=== PATIENT | male | born 1955 | race Caucasian/White ===

== ENCOUNTER 2018-06-14 14:27 | Emergency (ER) | payer BC ==
[~2018-06-14] VITALS: Ht 185.4 cm; Wt 93.0 kg
[2018-06-14] MEDS ORDERED: IV NORMAL SALINE 1000ML BAG 1,000 ML IV ONE ×2 (15:30→18:15)
[2018-06-14] MEDS ORDERED: ONDANSETRON PF 4 MG/2 ML VIAL. IV ONE (15:30)
--- NOTE | 2018-06-14 15:32 | PHYS DOC ---
Past Medical History Past Medical History: No Pertinent History (YURI CORTES APRN) Past Surgical History: Other Additional Past Surgical Histo: GROWTH ON CHEST (YURI CORTES APRN) Alcohol Use: Occasionally Drug Use: None (YURI CORTES APRN) Adult General Chief Complaint Chief Complaint: MULTIPLE COMPLAINTS HPI HPI 63-year-old male presents to ER with complaints of generalized fatigue, nausea and diarrhea, fever, and dizziness. Patient states symptoms started on Sunday night and have gradually worsened over the past couple of days. She reports she had temperature 101.4 today denies taking any [id number] Tylenol or ibuprofen. He reports he did take aspirin 81 mg. Patient states around noon he started having mid chest pressure while resting. Patient is denying any chest pain or palpitations at this time. Patient is uncertain how long the chest pressure lasted but states he did feel short of air when episode occurred. Patient denies any diaphoresis or vomiting. Patient denies pain radiating to extremities, neck, or back. Patient reports he has had dysuria the past couple of times he urinated denies any hematuria. He denies any blood in his stools. He reports his appetite has been down and he has had minimal fluid intake. Patient states he has had intermittent headache and dizziness with position changes. Patient during this initial exam is denying any headache or dizziness. Patient states he did take 2 Imodium yesterday but states he has had multiple episodes of diarrhea today without any Imodium intake today. (YURI CORTES APRN) Review of Systems Review of Systems Constitutional: Reports fever with generalized fatigue Eyes: Denies change in visual acuity, redness, or eye pain [] HENT: Denies nasal congestion or sore throat [] Respiratory: Reports nonprod. cough. Reports felt SOA with chest pressure earlier Cardiovascular: Reports chest pressure at noon- denies any CP currently GI: Denies abdominal pain, vomiting, or bloody stools. Reports nausea and mult. episodes of diarrhea : Denies hematuria. Reports dysuria Musculoskeletal: Denies back pain or joint pain [] Integument: Denies rash or skin lesions [] Neurologic: Denies headache, focal weakness or sensory changes [] Endocrine: Denies polyuria or polydipsia [] All other systems were reviewed and found to be within normal limits, except as documented in this note. (REFFITT,YURI Edwards ERROL) Current Medications Current Medications Current Medications Medications (Trade) Dose Ordered Sig/Michael Start Time Stop Time Status Last Admin Dose Admin Acetaminophen (Tylenol) 650 mg 1X ONCE 06/14/18 17:15 06/14/18 17:16 DC 06/14/18 17:14 650 MG Info (CONTRAST GIVEN -- Rx MONITORING) 1 each PRN DAILY PRN 06/14/18 17:30 06/14/18 20:27 DC Iohexol (Omnipaque 300 Mg/ml) 100 ml 1X ONCE 06/14/18 17:30 06/14/18 17:31 DC 06/14/18 17:31 100 ML Ondansetron HCl (Zofran) 4 mg 1X ONCE 06/14/18 15:30 06/14/18 15:31 DC 06/14/18 15:53 4 MG Sodium Chloride 1,000 ml @ 1,000 mls/hr 1X ONCE 06/14/18 18:15 06/14/18 19:14 DC 06/14/18 18:13 1,000 MLS/HR (EFRAÍN MELENDEZ MD) Allergies Allergies Allergies Coded Allergies Type Severity Reaction Last Updated Verified No Known Drug Allergies 07/31/14 No (EFRAÍN MELENDEZ MD) Physical Exam Physical Exam Constitutional: Well developed, well nourished, no acute distress, non-toxic appearance. Fatigued appearance HENT: Normocephalic, atraumatic, mild erythema bilat TM without bulging/ perforation or purulent drainage, mucous membranes pink/dry no pharyngeal swelling/erythema, no oral exudates, nose normal. [] Eyes: 3mm PERRLA, EOMI- no pain with eye movements, no nystagmus, conjunctiva normal, no discharge. [] Neck: Normal range of motion, no tenderness, supple, no stridor/gross adenopathy Cardiovascular: Tachycardic heart rate regular rhythm- 102 during exam, no murmur [] Lungs & Thorax: Bilateral breath sounds clear to auscultation. Resp. equal/ nonlabored. Abdomen: Bowel sounds normal, soft- no distention, no tenderness, no masses, no pulsatile masses. [] Skin: Warm, dry, no erythema, no rash. [] Back: No tenderness, no CVA tenderness. [] Extremities: No tenderness, no cyanosis, no clubbing, ROM intact, no edema. [] Neurologic: Alert and oriented X 3, normal motor function, normal sensory function, no focal deficits noted. [] Psychologic: Affect normal, judgement normal, mood normal. [] (REFFITT,YURI Edwards APRN) Current Patient Data Vital Signs Vital Signs Date Time Temp Pulse Resp B/P (MAP) Pulse Ox O2 Delivery O2 Flow Rate FiO2 06/14/18 19:48 75 18 101/60 (74) 98 Room Air 06/14/18 14:50 100.4 100.4 (EFRAÍN MELENDEZ MD) Lab Values Laboratory Tests Test 06/14/18 15:00 06/14/18 15:20 06/14/18 19:03 White Blood Count 6.0 x10^3/uL (4.0-11.0) Red Blood Count 5.40 x10^6/uL (4.30-5.70) Hemoglobin 16.1 g/dL (13.0-17.5) Hematocrit 48.5 % (39.0-53.0) Mean Corpuscular Volume 90 fL (79-100) Mean Corpuscular Hemoglobin 30 pg (25-35) Mean Corpuscular Hemoglobin Concent 33 g/dL (31-37) Red Cell Distribution Width 13.3 % (11.5-14.5) Platelet Count 216 x10^3/uL (140-400) Neutrophils (%) (Auto) 85 % (31-73) H Lymphocytes (%) (Auto) 3 % (24-48) L Monocytes (%) (Auto) 12 % (0-9) H Eosinophils (%) (Auto) 0 % (0-3) Basophils (%) (Auto) 0 % (0-3) Neutrophils # (Auto) 5.1 x10^3uL (1.8-7.7) Lymphocytes # (Auto) 0.2 x10^3/uL (1.0-4.8) L Monocytes # (Auto) 0.7 x10^3/uL (0.0-1.1) Eosinophils # (Auto) 0.0 x10^3/uL (0.0-0.7) Basophils # (Auto) 0.0 x10^3/uL (0.0-0.2) Segmented Neutrophils % 57 % (35-66) Band Neutrophils % 27 % (0-9) H Lymphocytes % 5 % (24-48) L Atypical Lymphocytes % (Manual) 2 % (0-0) H Monocytes % 7 % (0-10) Basophils % 2 % (0-3) Platelet Estimate Adequate (ADEQUATE) Sodium Level 137 mmol/L (136-145) Potassium Level 4.0 mmol/L (3.5-5.1) Chloride Level 101 mmol/L (98-107) Carbon Dioxide Level 25 mmol/L (21-32) Anion Gap 11 (6-14) Blood Urea Nitrogen 25 mg/dL (8-26) Creatinine 1.2 mg/dL (0.7-1.3) Estimated GFR (Cockcroft-Gault) 61.3 BUN/Creatinine Ratio 21 (6-20) H Glucose Level 100 mg/dL (70-99) H Calcium Level 8.7 mg/dL (8.5-10.1) Magnesium Level 2.1 mg/dL (1.8-2.4) Total Bilirubin 0.6 mg/dL (0.2-1.0) Aspartate Amino Transferase (AST) 19 U/L (15-37) Alanine Aminotransferase (ALT) 38 U/L (16-63) Alkaline Phosphatase 67 U/L (46-116) Troponin I Quantitative < 0.017 ng/mL (0.000-0.055) Total Protein 7.2 g/dL (6.4-8.2) Albumin 3.5 g/dL (3.4-5.0) Albumin/Globulin Ratio 0.9 (1.0-1.7) L Influenza Type A Antigen Negative (NEGATIVE) Influenza Type B Antigen Negative (NEGATIVE) Urine Collection Type Unknown Urine Color Yellow Urine Clarity Clear Urine pH 5.5 Urine Specific [place] >=1.030 Urine Protein Negative mg/dL (NEG-TRACE) Urine Glucose (UA) Negative mg/dL (NEG) Urine Ketones (Stick) 15 mg/dL (NEG) Urine Blood Negative (NEG) Urine Nitrite Negative (NEG) Urine Bilirubin Small (NEG) Urine Urobilinogen Dipstick 0.2 mg/dL (0.2 mg/dL) Urine Leukocyte Esterase Negative (NEG) Urine RBC 0 /HPF (0-2) Urine WBC 0 /HPF (0-4) Urine Squamous Epithelial Cells Few /LPF Urine Bacteria 0 /HPF (0-FEW) Urine Hyaline Casts Few /HPF Urine Mucus Marked /LPF Laboratory Tests 06/14/18 15:00 Laboratory Tests 06/14/18 15:00 (EFRAÍN MELENDEZ MD) Lab Values Laboratory Tests Test 06/14/18 15:00 06/14/18 15:20 06/14/18 19:03 White Blood Count 6.0 x10^3/uL (4.0-11.0) Red Blood Count 5.40 x10^6/uL (4.30-5.70) Hemoglobin 16.1 g/dL (13.0-17.5) Hematocrit 48.5 % (39.0-53.0) Mean Corpuscular Volume 90 fL (79-100) Mean Corpuscular Hemoglobin 30 pg (25-35) Mean Corpuscular Hemoglobin Concent 33 g/dL (31-37) Red Cell Distribution Width 13.3 % (11.5-14.5) Platelet Count 216 x10^3/uL (140-400) Neutrophils (%) (Auto) 85 % (31-73) H Lymphocytes (%) (Auto) 3 % (24-48) L Monocytes (%) (Auto) 12 % (0-9) H Eosinophils (%) (Auto) 0 % (0-3) Basophils (%) (Auto) 0 % (0-3) Neutrophils # (Auto) 5.1 x10^3uL (1.8-7.7) Lymphocytes # (Auto) 0.2 x10^3/uL (1.0-4.8) L Monocytes # (Auto) 0.7 x10^3/uL (0.0-1.1) Eosinophils # (Auto) 0.0 x10^3/uL (0.0-0.7) Basophils # (Auto) 0.0 x10^3/uL (0.0-0.2) Segmented Neutrophils % 57 % (35-66) Band Neutrophils % 27 % (0-9) H Lymphocytes % 5 % (24-48) L Atypical Lymphocytes % (Manual) 2 % (0-0) H Monocytes % 7 % (0-10) Basophils % 2 % (0-3) Platelet Estimate Adequate (ADEQUATE) Sodium Level 137 mmol/L (136-145) Potassium Level 4.0 mmol/L (3.5-5.1) Chloride Level 101 mmol/L (98-107) Carbon Dioxide Level 25 mmol/L (21-32) Anion Gap 11 (6-14) Blood Urea Nitrogen 25 mg/dL (8-26) Creatinine 1.2 mg/dL (0.7-1.3) Estimated GFR (Cockcroft-Gault) 61.3 BUN/Creatinine Ratio 21 (6-20) H Glucose Level 100 mg/dL (70-99) H Calcium Level 8.7 mg/dL (8.5-10.1) Magnesium Level 2.1 mg/dL (1.8-2.4) Total Bilirubin 0.6 mg/dL (0.2-1.0) Aspartate Amino Transferase (AST) 19 U/L (15-37) Alanine Aminotransferase (ALT) 38 U/L (16-63) Alkaline Phosphatase 67 U/L (46-116) Troponin I Quantitative < 0.017 ng/mL (0.000-0.055) Total Protein 7.2 g/dL (6.4-8.2) Albumin 3.5 g/dL (3.4-5.0) Albumin/Globulin Ratio 0.9 (1.0-1.7) L Influenza Type A Antigen Negative (NEGATIVE) Influenza Type B Antigen Negative (NEGATIVE) Urine Collection Type Unknown Urine Color Yellow Urine Clarity Clear Urine pH 5.5 Urine Specific [place] >=1.030 Urine Protein Negative mg/dL (NEG-TRACE) Urine Glucose (UA) Negative mg/dL (NEG) Urine Ketones (Stick) 15 mg/dL (NEG) Urine Blood Negative (NEG) Urine Nitrite Negative (NEG) Urine Bilirubin Small (NEG) Urine Urobilinogen Dipstick 0.2 mg/dL (0.2 mg/dL) Urine Leukocyte Esterase Negative (NEG) Urine RBC 0 /HPF (0-2) Urine WBC 0 /HPF (0-4) Urine Squamous Epithelial Cells Few /LPF Urine Bacteria 0 /HPF (0-FEW) Urine Hyaline Casts Few /HPF Urine Mucus Marked /LPF Laboratory Tests 06/14/18 15:00 Laboratory Tests 06/14/18 15:00 (YURI CORTES APRN) EKG EKG EKG obtained 06/14/18 at 1518 Interpreted by ER physician Sinus rhythm Rate 98 No STEMI (YURI CORTES APRN) Radiology/Procedures Radiology/Procedures []PROCEDURE: CHEST AP ONLY CHEST AP ONLY History: chest pain. Comparison with image from July 31, 2014, no available report. Heart size is stable and not enlarged. No evidence of pneumothorax, pleural effusion or infiltrate. Regional skeleton appears grossly intact. IMPRESSION: No consolidating infiltrate. Electronically signed by: Fadi Carty MD (06/14/2018 3:45 PM) [facility] DICTATED and SIGNED BY: FADI CARTY MD DATE: 06/14/18 1545 (YURI CORTES APRN) Course & Med Decision Making Course & Med Decision Making Pertinent Labs and Imaging studies reviewed. (See chart for details) 1605: Pt reports he is feeling slightly better after receiving IV fluids and nausea medicine. Discussed test results with negative flu. Chest x-ray was negative for acute findings. Some labs are still pending. EKG with no acute ST elevation or STEMI and troponin was <0.017. Patient reports he has still feeling feverish with initial temp. at 100.4. Will provide dose of Tylenol and reevaluate. HR has improved as he was 110 at triage, 102 during this provider's exam and currently 90 on the monitor. 1655: Discussed test results with patient with WBCs normal limits at 6.0 he did have 27 bands on his differential. Discussed plans to obtain CT abdomen and pelvis for further evaluation. Patient has had no diarrhea while in the ER but did advise him if he needed to use the bathroom to left RN know so a stool sample could be collected. Pt is in no visible distress at this time. 1915: Pt was able to provide a UA after additional IV fluids were given. Pt's urine is concentrated. This and dehydration was discussed with pt. UA was negative for infection did have 15 ketones following 2L NS while in ER. Patient encouraged to increase his fluid intake throughout tonight. All test results were discussed. CT was negative for acute findings. He reports he is feeling much better than at time of arrival and is comfortable with home d/c with improved sxs. He is denying any pain or dizziness. He remains alert and oriented 3. He is denying any chest pain, shortness of air, or abdominal pain. Patient has had oral fluids without any complaints of nausea or active vomiting. Patient has had no diarrhea episodes while in the ER so will specimen was not obtained. Pt will follow-up with his primary care physician next week for reevaluation. Education provided on signs and symptoms to return to ER for an discharge paperwork was discussed. was at bedside during d/c discussion. (YURI CORTES APRN) Course & Med Decision Making Staff Physician Addendum: I was working in the ER during the course of this patient's visit. I was available for consultation as needed, but I was not directly involved in the care of this patient. (EFRAÍN MELENDEZ MD) Dragon Disclaimer Dragon Disclaimer This electronic medical record was generated, in whole or in part, using a voice recognition dictation system. (YURI CORTES APRN) Departure Departure Impression: Primary Impression: Diarrhea Additional Impressions: Dehydration Dizziness Chest pain Cough Disposition: HOME, SELF-CARE Condition: STABLE Referrals: NO PCP (PCP) Patient Instructions: Chest Pain (Nonspecific), Cough, Adult, Dehydration, Adult, Diarrhea, Dizziness Additional Instructions: Drink plenty of fluids and eat bland diet advancing slowly as tolerated. Tylenol and/or ibuprofen as needed for fever and pain control as directed on container. Follow-up with your primary care physician next week if symptoms persist or with concerns. Problem Qualifiers YURI CORTES APRN Jun 14, 2018 15:32 EFRAÍN MELENDEZ MD Jun 26, 2018 18:41
[2018-06-14 15:42] LABS: CALCIUM 8.7 mg/dL (8.5-10.1); CREATININE 1.2 mg/dL (0.7-1.3); GFR 61.3
[2018-06-14 15:45] LABS: BASO % 0 % (0-3); EOS % 0 % (0-3); HEMATOCRIT 48.5 % (39.0-53.0); HEMOGLOBIN 16.1 g/dL (13.0-17.5); LYMPH # 0.2 x10^3/uL (1.0-4.8); LYMPH % 3 % (24-48); MEAN CORPUSCULAR HEMOGLOBIN 30 pg (25-35); MEAN CORPUSCULAR HGB CONC 33 g/dL (31-37); MEAN CORPUSCULAR VOLUME 90 fL (79-100); MONO # 0.7 x10^3/uL (0.0-1.1); MONO % 12 % (0-9); NEUT # 5.1 x10^3uL (1.8-7.7); NEUT % 85 % (31-73); PLATELET COUNT 216 x10^3/uL (140-400); RED CELL DISTRIBUTION WIDTH 13.3 % (11.5-14.5)
--- NOTE | 2018-06-14 15:48 | RAD ---
CHEST AP ONLY History: chest pain. Comparison with image from July 31, 2014, no available report. Heart size is stable and not enlarged. No evidence of pneumothorax, pleural effusion or infiltrate. Regional skeleton appears grossly intact. IMPRESSION: No consolidating infiltrate. Electronically signed by: Fadi Carty MD (06/14/2018 3:45 PM) [facility]
[2018-06-14 15:49] LABS: ALBUMIN 3.5 g/dL (3.4-5.0); ALBUMIN/GLOBULIN RATIO 0.9 (1.0-1.7); MAGNESIUM 2.1 mg/dL (1.8-2.4); TOTAL BILIRUBIN 0.6 mg/dL (0.2-1.0); TOTAL PROTEIN 7.2 g/dL (6.4-8.2)
[2018-06-14 15:53] LABS: INFLUENZA A PATIENT NEGATIVE (NEGATIVE); INFLUENZA B PATIENT NEGATIVE (NEGATIVE)
--- NOTE | 2018-06-14 16:08 | EKG ---
[facility] [address] [place] [address] Test Date: 2018-06-14 Test Time: 15:18:49 Pat Name: ALEENA ESTEVEZ Department: Room: Gender: M [employer] Technician: : [id number] Requested By: YURI CORTES Order Number: [id number] Reading MD: Barrera Cruz MD Measurements Intervals [place] Rate: 98 P: 27 DC: 142 QRS: -16 QRSD: 80 T: 8 QT: 316 QTc: 405 Interpretive Statements SINUS RHYTHM Electronically Signed On 06-18-2018 15:11:15 CDT by Barrera Cruz MD
[2018-06-14 16:36] LABS: % ATYL 2 % (0-0); % BANDS 27 % (0-9); % BASOS 2 % (0-3); % LYMPHS 5 % (24-48); % MONOS 7 % (0-10); % SEGS 57 % (35-66)
[2018-06-14 16:38] LABS: PLT ESTIMATE ADEQUATE (ADEQUATE)
[2018-06-14] MEDS ORDERED: ACETAMINOPHEN 325 MG TABLET. PO ONE (17:15)
[2018-06-14] MEDS ORDERED: CONTRAST GIVEN. MC PRN (17:30)
[2018-06-14] MEDS ORDERED: IOHEXOL 300 MG/ML 100ML VIAL. IV ONE (17:30)
--- NOTE | 2018-06-14 17:43 | RAD ---
PQRS Compliance statement: One or more of the following individualized dose reduction techniques were utilized for this examination: 1. Automated exposure control. 2. Adjustment of the mA and/or kV according to patient size. 3. Use of iterative reconstruction technique. Indication:DIARRHEA X 2 DAYS INJ [id number] NO PREV TECHNIQUE: CT abdomen and pelvis with IV contrast with multiplanar reformats. COMPARISON: None FINDINGS: Heart is normal in size. No pericardial or pleural effusion. Mild bibasilar dependent atelectasis. 1.6 x 1.4 cm low attenuating lesion in segment 6 most likely a hepatic cyst. Otherwise, liver, spleen, gallbladder, pancreas, adrenals and right kidney within normal limits. Too small to characterize couple of low attenuating lesions in the left kidney statistically simple cysts. No enlarged retroperitoneal or pelvic adenopathy. No free pelvic fluid or ascites. Shotty mesenteric lymph nodes most likely reactive. No bowel obstruction. Mild sigmoid and descending colon diverticulosis. Normal appendix. The prostate and seminal vesicles show no large mass. Urinary bladder demonstrates no radiopaque stones. No pneumoperitoneum. No suspicious bony lesion. IMPRESSION: No acute findings. Electronically signed by: Venancio Lyons DO (06/14/2018 5:40 PM) [facility]
[2018-06-14 19:07] LABS: BILIRUBIN,URINE SMALL (NEG); CLARITY,URINE CLEAR; COLOR,URINE YELLOW; NITRITE,URINE NEGATIVE (NEG); PH,URINE 5.5; PROTEIN,URINE NEGATIVE (NEG-TRACE); UROBILINOGEN,URINE 0.2 mg/dL (0.2 mg/dL)
[2018-06-14 19:14] LABS: HYALINE CASTS, URINE FEW /HPF; SQUAMOUS EPITHELIAL CELL,UR FEW /LPF
[2018-06-14 19:15] LABS: BACTERIA,URINE 0 /HPF (0-FEW); RBC,URINE 0 /HPF (0-2); WBC,URINE 0 /HPF (0-4)
[2018-06-14 19:48] VITALS: BP 101/60
== END 2018-06-14 19:55 | disposition home or self-care (01) ==
LOC: ER 14:27
DX: E86.0 Dehydration (principal); R07.89 Other chest pain; R05 Cough
CPT/HCPCS: 36415; 71045; 74177; 80053; 81001; 83735; 84484; 85007; 85025; 87804; 93005; 96361; 96374; 99284; J2405; J7030; Q9967